=== PATIENT | male | born 1965 | race Caucasian/White ===

== ENCOUNTER 2019-04-02 21:25 | Emergency (ER) | payer MEDICAID ==
[~2019-04-02] VITALS: Ht 172.7 cm; Wt 91.0 kg
[2019-04-02] MEDS ORDERED: ONDANSETRON HCL 4MG/2ML INJ IV STA (23:05)
[2019-04-02 23:35] LABS: BASOPHILS % 0.5 % (0.0-2.0); CHLORIDE 109 mEq/L (98-107); EOSINOPHILS % 2.7 % (0.0-5.0); HEMATOCRIT. 45.4 % (42.0-52.0); HEMOGLOBIN. 15.3 g/dL (14.0-18.0); LYMPHOCYTES % 42.4 % (20.0-50.0); MEAN CORPUSCULAR HEMOGLOBIN 29.7 pg (28.0-32.0); MEAN CORPUSCULAR VOLUME 88.1 fL (80.0-94.0); MEAN PLATELET VOLUME 10.9 fl (7.4-10.4); MONOCYTES % 5.1 % (2.0-8.0); NEUTROPHILS % 49.3 % (40.0-76.0); PLATELET 160 x1000/uL (130-400); RED BLOOD CELL COUNT 5.15 mill/uL (4.7-6.1); RED CELL DISTRIBUTION WIDTH 14.1 % (11.6-14.6)
[2019-04-03 08:00] VITALS: BP 105/57
[2019-04-05] MEDS ORDERED: PANT40TA4 MT (10:10)
[2019-04-05] MEDS ORDERED: ATOR20TA65 MT (10:11)
== END 2019-04-03 08:30 | disposition home or self-care (01) ==
LOC: ER 21:25
DX: R11.10 Vomiting, unspecified (principal); R05 Cough; I10 Essential (primary) hypertension; F41.9 Anxiety disorder, unspecified; F03.90 Unspecified dementia, unspecified severity, without behavioral disturbance, psychotic disturbance, mood disturbance, and anxiety
CPT/HCPCS: 36415; 71045; 80053; 83690; 84484; 85025; 93005; 96374; 99284; J2405; Z7610

== ENCOUNTER 2020-01-08 22:41 | Inpatient (IN) | payer MEDICARE, MEDICAID ==
[~2020-01-08] VITALS: Ht 162.6 cm; Wt 74.4 kg
[2020-01-08 22:00] VITALS: BP 115/71
[~2020-01-08 22:41] MED LIST: ATOR20TA65 MT; PANT40TA4 MT
[2020-01-09] VITALS: BP 119/65
[2020-01-09 04:00] VITALS: BP 94/66
[2020-01-09] MEDS ORDERED: DEXTROSE 50% WATER 50ML SYRINGE IV PRN (04:30)
[2020-01-09] MEDS ORDERED: GABA-531 PO (05:00)
[2020-01-09] MEDS ORDERED: METF-416 MT (05:00)
[2020-01-09] MEDS ORDERED: FAMO20TA8 MT (05:00)
[2020-01-09] MEDS ORDERED: GLIP10TA10 PO (05:00)
[2020-01-09] MEDS: GABAPENTIN 100MG CAPSULE PO SCH ×3 (06:51→21:09)
[2020-01-09] MEDS: FAMOTIDINE 20MG TABLET PO SCH ×2 (06:53→16:56)
[2020-01-09] MEDS: BLOOD SUGAR DIAGNOSTIC STRIP TEST SCH ×4 (07:42→21:05)
[2020-01-09 08:00] VITALS: BP 101/68
[2020-01-09] MEDS: INSULIN LISPRO 100 UNITS/ML SUBCUT SCH ×4 (08:29→21:09)
[2020-01-09 09:13] LABS: CLARITY URINE CLOUDY (CLEAR); COLOR URINE YELLOW (YELLOW); KETONES URINE NEGATIVE (NEGATIVE); LEUKOCYTE ESTERASE URINE 3+ (NEGATIVE); NITRITE URINE NEGATIVE (NEGATIVE); OCCULT BLOOD URINE TRACE (NEGATIVE); PROTEIN URINE 1+ (NEGATIVE); SPECIFIC GRAVITY URINE 1.025 (1.005-1.030)
[2020-01-09 09:25] LABS: BASOPHILS % 0.6 % (0.0-2.0); EOSINOPHILS % 4.3 % (0.0-5.0); HEMATOCRIT. 48.1 % (42.0-52.0); HEMOGLOBIN. 16.1 g/dL (14.0-18.0); LYMPHOCYTES % 34.5 % (20.0-50.0); MEAN CORPUSCULAR HEMOGLOBIN 29.5 pg (28.0-32.0); MEAN CORPUSCULAR VOLUME 88.3 fL (80.0-94.0); MEAN PLATELET VOLUME 10.2 fl (7.4-10.4); MONOCYTES % 4.8 % (2.0-8.0); NEUTROPHILS % 55.8 % (40.0-76.0); PLATELET 188 x1000/uL (130-400); RED BLOOD CELL COUNT 5.45 mill/uL (4.7-6.1); RED CELL DISTRIBUTION WIDTH 14.9 % (11.6-14.6)
[2020-01-09 09:34] LABS: PROTHROMBIN TIME 10.9 sec (9.6-11.0)
[2020-01-09 09:40] LABS: CHLORIDE 107 mEq/L (98-107)
[2020-01-09] MEDS ORDERED: CEFTRIAXONE 1 G PREMIX 50 ML IV SCH (10:30)
[2020-01-09 12:00] VITALS: BP 112/72
[2020-01-09] MEDS: CEFTRIAXONE 1,000 MG in DEXTROSE 5% WATER 50 ML IV SCH (14:00)
[2020-01-09] MEDS: SODIUM CHLORIDE 0.9% 1,000 ML IV SCH (14:45)
[2020-01-09 16:00] VITALS: BP 117/69
[2020-01-09 20:00] VITALS: BP 129/79
[2020-01-09] MEDS: INSULIN GLARGINE UD 100 UNITS/ML SYR SUBCUT SCH (21:08)
[2020-01-10] VITALS: BP 113/72
[2020-01-10 04:00] VITALS: BP_SYST 108
[2020-01-10] MEDS: GABAPENTIN 100MG CAPSULE PO SCH ×3 (05:51→21:13)
[2020-01-10] MEDS: BLOOD SUGAR DIAGNOSTIC STRIP TEST SCH ×4 (06:40→21:13)
[2020-01-10] MEDS: FAMOTIDINE 20MG TABLET PO SCH ×2 (06:40→17:58)
[2020-01-10 08:00] VITALS: BP 110/66
[2020-01-10] MEDS: INSULIN LISPRO 100 UNITS/ML SUBCUT SCH ×4 (08:45→21:20)
[2020-01-10] MEDS: SODIUM CHLORIDE 0.9% 1,000 ML IV SCH (10:30)
[2020-01-10] MEDS: CEFTRIAXONE 1,000 MG in DEXTROSE 5% WATER 50 ML IV SCH (11:45)
[2020-01-10 12:00] VITALS: BP 94/46
[2020-01-10 15:15] LABS: BASOPHILS % 0.5 % (0.0-2.0); EOSINOPHILS % 4.2 % (0.0-5.0); HEMATOCRIT. 44.9 % (42.0-52.0); HEMOGLOBIN. 15.2 g/dL (14.0-18.0); LYMPHOCYTES % 38.5 % (20.0-50.0); MEAN CORPUSCULAR HEMOGLOBIN 29.9 pg (28.0-32.0); MEAN CORPUSCULAR VOLUME 88.3 fL (80.0-94.0); MONOCYTES % 4.6 % (2.0-8.0); NEUTROPHILS % 52.2 % (40.0-76.0); PLATELET 176 x1000/uL (130-400); RED BLOOD CELL COUNT 5.09 mill/uL (4.7-6.1); RED CELL DISTRIBUTION WIDTH 14.7 % (11.6-14.6)
[2020-01-10 15:20] LABS: CHLORIDE 105 mEq/L (98-107)
[2020-01-10 16:00] VITALS: BP 121/76
[2020-01-10 20:00] VITALS: BP 106/69
[2020-01-10] MEDS: INSULIN GLARGINE UD 100 UNITS/ML SYR SUBCUT SCH (21:21)
[2020-01-11] VITALS: BP 110/68
[2020-01-11 04:00] VITALS: BP 109/62
[2020-01-11] MEDS: GABAPENTIN 100MG CAPSULE PO SCH ×2 (05:17→13:01)
[2020-01-11] MEDS: FAMOTIDINE 20MG TABLET PO SCH ×2 (05:17→17:00)
[2020-01-11] MEDS: BLOOD SUGAR DIAGNOSTIC STRIP TEST SCH ×3 (06:13→17:00)
[2020-01-11 08:00] VITALS: BP 102/68
[2020-01-11] MEDS: INSULIN LISPRO 100 UNITS/ML SUBCUT SCH ×3 (08:35→17:55)
[2020-01-11 12:00] VITALS: BP 121/70
[2020-01-11] MEDS: CEFTRIAXONE 1,000 MG in DEXTROSE 5% WATER 50 ML IV SCH (12:19)
[2020-01-11 16:00] VITALS: BP 111/65
[2020-01-11] MEDS ORDERED: LEVO500T2 PO (18:43)
[2020-01-11 18:44] VITALS: BP 107/75
[2020-01-12] MEDS ORDERED: LEVOFLOXACIN 500MG TABLET PO SCH (11:00)
== END 2020-01-11 19:20 | DRG 871 ==
LOC: 6EST 22:41
PROVIDERS: ADMIT Internal Medicine; ATTEND Internal Medicine
DX: A41.9 Sepsis, unspecified organism (principal); G93.41 Metabolic encephalopathy; J98.11 Atelectasis; N39.0 Urinary tract infection, site not specified; K74.60 Unspecified cirrhosis of liver; B96.20 Unspecified Escherichia coli [E. coli] as the cause of diseases classified elsewhere; K21.9 Gastro-esophageal reflux disease without esophagitis; E11.40 Type 2 diabetes mellitus with diabetic neuropathy, unspecified; F03.90 Unspecified dementia, unspecified severity, without behavioral disturbance, psychotic disturbance, mood disturbance, and anxiety; Z86.73 Personal history of transient ischemic attack (TIA), and cerebral infarction without residual deficits
CPT/HCPCS: 36415; 71045; 80048; 80053; 81003; 82140; 82962; 83036; 84443; 85025; 87077; 87186; 93005; J0696; J1815; J7030; J7060

== ENCOUNTER 2020-05-17 09:36 | Inpatient (IN) | payer MEDICARE, MEDICAID ==
[~2020-05-17] VITALS: Ht 162.6 cm; Wt 72.1 kg
[~2020-05-17 09:36] MED LIST changes: +FAMO20TA8 MT; +GABA-531 PO; +GLIP10TA10 PO; +LEVO500T2 PO; +METF-416 MT
[2020-05-17] MEDS ORDERED: ACETAMINOPHEN 325MG TABLET PO STA (09:45)
[2020-05-17 13:30] LABS: BASOPHILS % 0.3 % (0.0-2.0); HEMATOCRIT. 47.2 % (42.0-52.0); HEMOGLOBIN. 15.9 g/dL (14.0-18.0); LYMPHOCYTES % 14.1 % (20.0-50.0); MEAN CORPUSCULAR HEMOGLOBIN 28.9 pg (28.0-32.0); MEAN CORPUSCULAR VOLUME 85.5 fL (80.0-94.0); MEAN PLATELET VOLUME 9.7 fl (7.4-10.4); MONOCYTES % 3.5 % (2.0-8.0); NEUTROPHILS % 82.1 % (40.0-76.0); PLATELET 141 x1000/uL (130-400); RED BLOOD CELL COUNT 5.52 mill/uL (4.7-6.1); RED CELL DISTRIBUTION WIDTH 14.7 % (11.6-14.6)
[2020-05-17 13:35] LABS: CHLORIDE 103 mEq/L (98-107)
[2020-05-17] MEDS ORDERED: ACETAMINOPHEN 325MG TABLET PO NR (14:22)
[2020-05-17] MEDS ORDERED: PIPERACILLIN/TAZ 3.375G PREMIX 50 ML IV NR (14:30)
[2020-05-17] MEDS ORDERED: SODIUM CHLORIDE 0.9% 250 ML IV ONE (14:30)
[2020-05-17] MEDS ORDERED: VANCOMYCIN 1 G PREMIX 200 ML IV NR (14:30)
[2020-05-17] MEDS ORDERED: DEXAMETHASONE 10 MG/ML VIAL IV NR (16:30)
[2020-05-17 17:44] LABS: CLARITY URINE CLOUDY (CLEAR); COLOR URINE YELLOW (YELLOW); KETONES URINE 3+ (NEGATIVE); LEUKOCYTE ESTERASE URINE NEGATIVE (NEGATIVE); NITRITE URINE NEGATIVE (NEGATIVE); OCCULT BLOOD URINE 2+ (NEGATIVE); PROTEIN URINE 4+ (NEGATIVE); SPECIFIC GRAVITY URINE 1.037 (1.005-1.030)
[2020-05-17] MEDS ORDERED: ALBUTEROL 6.7GM HFA INHALER ORI PRN (18:30)
[2020-05-17] MEDS ORDERED: GUAIFENESIN 200MG/10ML SUGAR FREE UDC PO PRN (18:30)
[2020-05-17] MEDS ORDERED: ZOLPIDEM TARTRATE 5MG TABLET PO PRN (18:30)
[2020-05-17] MEDS ORDERED: MAGNESIUM HYDROXIDE 400MG/5ML 30ML UDC PO PRN (18:30)
[2020-05-17] MEDS ORDERED: BENZONATATE 100MG CAPSULE PO PRN (18:30)
[2020-05-17] MEDS ORDERED: ACETAMINOPHEN 325MG TABLET PO PRN ×2 (18:30)
[2020-05-17] MEDS ORDERED: ONDANSETRON HCL 4MG/2ML INJ IV PRN (18:30)
[2020-05-17] MEDS ORDERED: MAGNESIUM/ALUMINUM HYDROXIDE/SIMETHICONE 30ML UDC PO PRN (18:30)
[2020-05-17] MEDS ORDERED: DIPHENHYDRAMINE 50MG/ML VIAL IV PRN (18:30)
[2020-05-17] MEDS ORDERED: CLONIDINE 0.1MG TABLET PO PRN (18:30)
[2020-05-17] MEDS: BLOOD SUGAR DIAGNOSTIC STRIP TEST SCH (19:08)
[2020-05-17] MEDS: INSULIN LISPRO 100 UNITS/ML SUBCUT SCH (19:10)
[2020-05-17] MEDS ORDERED: CEFEPIME 1,000 MG in DEXTROSE 5% WATER 50 ML IV SCH (20:00)
[2020-05-18] MEDS: SODIUM CHLORIDE 0.9% INJ 3ML FLUSH IVF SCH ×4 (00:44→21:35)
[2020-05-18] MEDS: GUAIFENESIN 600MG ER TABLET PO SCH ×3 (01:30→21:31)
[2020-05-18] MEDS: DOXYCYCLINE HYCLATE 100MG CAPSULE PO SCH ×3 (01:30→21:31)
[2020-05-18] MEDS: ENOXAPARIN 40MG/0.4ML SYR SUBCUT SCH ×2 (01:30→21:31)
[2020-05-18] MEDS: CHOLECALCIFEROL (D3) 1000 UNIT TABLET PO SCH ×2 (01:30→11:57)
[2020-05-18] MEDS: GABAPENTIN 100MG CAPSULE PO SCH ×4 (01:31→21:31)
[2020-05-18] MEDS: BLOOD SUGAR DIAGNOSTIC STRIP TEST SCH ×4 (01:31→21:00)
[2020-05-18] MEDS: INSULIN GLARGINE UD 100 UNITS/ML SYR SUBCUT SCH ×3 (01:32→22:33)
[2020-05-18] MEDS: INSULIN LISPRO 100 UNITS/ML SUBCUT SCH ×4 (01:33→22:33)
[2020-05-18] MEDS: FAMOTIDINE 20MG TABLET PO SCH ×3 (01:33→21:31)
[2020-05-18 05:12] LABS: BASOPHILS % 0.3 % (0.0-2.0); HEMATOCRIT. 48.2 % (42.0-52.0); HEMOGLOBIN. 16.1 g/dL (14.0-18.0); LYMPHOCYTES % 10.9 % (20.0-50.0); MEAN CORPUSCULAR VOLUME 86.7 fL (80.0-94.0); MEAN PLATELET VOLUME 9.7 fl (7.4-10.4); MONOCYTES % 2.6 % (2.0-8.0); NEUTROPHILS % 86.2 % (40.0-76.0); PLATELET 152 x1000/uL (130-400); RED BLOOD CELL COUNT 5.57 mill/uL (4.7-6.1); RED CELL DISTRIBUTION WIDTH 14.7 % (11.6-14.6)
[2020-05-18 05:14] LABS: CHLORIDE 104 mEq/L (98-107)
[2020-05-18 05:41] LABS: D-DIMER 0.76 mg/L FEU (<0.50); INR 1.1; PROTHROMBIN TIME 11.2 sec (9.6-11.0)
[2020-05-18] MEDS: METFORMIN HCL 500MG TABLET PO SCH ×2 (11:20→18:32)
[2020-05-18] MEDS: CEFEPIME 1,000 MG in DEXTROSE 5% WATER 50 ML IV SCH (11:57)
[2020-05-18 12:23] VITALS: BP 139/80
[2020-05-18 16:00] VITALS: BP 120/76
[2020-05-18 16:01] VITALS: BP 120/76
[2020-05-18] MEDS: DEXAMETHASONE 10 MG/ML VIAL IV SCH (18:41)
[2020-05-18 20:00] VITALS: BP 117/87
[2020-05-19] VITALS: BP 119/80
[2020-05-19] MEDS: CEFEPIME 1,000 MG in DEXTROSE 5% WATER 50 ML IV SCH ×2 (02:19→13:20)
[2020-05-19 04:00] VITALS: BP 135/68
[2020-05-19] MEDS: GABAPENTIN 100MG CAPSULE PO SCH ×3 (06:20→22:23)
[2020-05-19] MEDS: SODIUM CHLORIDE 0.9% INJ 3ML FLUSH IVF SCH ×3 (06:21→22:45)
[2020-05-19] MEDS: INSULIN LISPRO 100 UNITS/ML SUBCUT SCH ×4 (06:25→22:27)
[2020-05-19] MEDS: BLOOD SUGAR DIAGNOSTIC STRIP TEST SCH ×4 (06:26→21:00)
[2020-05-19 08:00] VITALS: BP 108/71
[2020-05-19] MEDS: GUAIFENESIN 600MG ER TABLET PO SCH ×2 (09:49→22:22)
[2020-05-19] MEDS: DOXYCYCLINE HYCLATE 100MG CAPSULE PO SCH ×2 (09:49→22:23)
[2020-05-19] MEDS: CHOLECALCIFEROL (D3) 1000 UNIT TABLET PO SCH (09:49)
[2020-05-19] MEDS: FAMOTIDINE 20MG TABLET PO SCH ×2 (09:49→22:23)
[2020-05-19] MEDS: METFORMIN HCL 500MG TABLET PO SCH ×2 (09:49→18:44)
[2020-05-19] MEDS: INSULIN GLARGINE UD 100 UNITS/ML SYR SUBCUT SCH (11:31)
[2020-05-19 12:00] VITALS: BP 111/75
[2020-05-19 16:00] VITALS: BP 106/67
[2020-05-19] MEDS: DEXAMETHASONE 10 MG/ML VIAL IV SCH (18:44)
[2020-05-19 20:00] VITALS: BP 104/68
[2020-05-19] MEDS: ENOXAPARIN 40MG/0.4ML SYR SUBCUT SCH (22:23)
[2020-05-20] VITALS: BP 101/70
[2020-05-20] MEDS: CEFEPIME 1,000 MG in DEXTROSE 5% WATER 50 ML IV SCH ×2 (00:18→12:12)
[2020-05-20 04:00] VITALS: BP 140/66
[2020-05-20] MEDS: SODIUM CHLORIDE 0.9% INJ 3ML FLUSH IVF SCH ×3 (05:53→23:25)
[2020-05-20] MEDS: GABAPENTIN 100MG CAPSULE PO SCH ×3 (05:53→23:26)
[2020-05-20] MEDS: INSULIN LISPRO 100 UNITS/ML SUBCUT SCH ×4 (06:38→21:00)
[2020-05-20] MEDS: BLOOD SUGAR DIAGNOSTIC STRIP TEST SCH ×4 (06:40→21:00)
[2020-05-20 08:00] VITALS: BP 121/74
[2020-05-20] MEDS: GUAIFENESIN 600MG ER TABLET PO SCH ×2 (09:00→23:26)
[2020-05-20] MEDS: CHOLECALCIFEROL (D3) 1000 UNIT TABLET PO SCH (10:03)
[2020-05-20] MEDS: DOXYCYCLINE HYCLATE 100MG CAPSULE PO SCH ×2 (10:03→23:25)
[2020-05-20] MEDS: METFORMIN HCL 500MG TABLET PO SCH ×2 (10:03→18:30)
[2020-05-20] MEDS: FAMOTIDINE 20MG TABLET PO SCH ×2 (10:03→23:24)
[2020-05-20] MEDS: INSULIN GLARGINE UD 100 UNITS/ML SYR SUBCUT SCH ×2 (10:16→23:34)
[2020-05-20 12:00] VITALS: BP 117/76
[2020-05-20 16:00] VITALS: BP 107/77
[2020-05-20] MEDS: DEXTROSE 50% WATER 50ML SYRINGE IV PRN (18:21)
[2020-05-20] MEDS: MEROPENEM 1,000 MG in SODIUM CHLORIDE 0.9% 100 ML IV SCH (18:30)
[2020-05-20] MEDS: ERGOCALCIFEROL 50000UNITS CAPSULE PO SCH (18:30)
[2020-05-20] MEDS: DEXAMETHASONE 10 MG/ML VIAL IV SCH (18:30)
[2020-05-20 20:00] VITALS: BP 112/65
[2020-05-20] MEDS: ENOXAPARIN 40MG/0.4ML SYR SUBCUT SCH (23:24)
[2020-05-21] VITALS: BP 108/71
[2020-05-21 04:00] VITALS: BP 98/63
[2020-05-21] MEDS: MEROPENEM 1,000 MG in SODIUM CHLORIDE 0.9% 100 ML IV SCH ×4 (04:47→17:25)
[2020-05-21] MEDS: BLOOD SUGAR DIAGNOSTIC STRIP TEST SCH ×4 (07:10→21:00)
[2020-05-21] MEDS: INSULIN LISPRO 100 UNITS/ML SUBCUT SCH ×4 (07:40→21:00)
[2020-05-21 07:53] LABS: BASOPHILS % 0.2 % (0.0-2.0); EOSINOPHILS % 0.1 % (0.0-5.0); HEMATOCRIT. 43.6 % (42.0-52.0); HEMOGLOBIN. 14.7 g/dL (14.0-18.0); LYMPHOCYTES % 19.3 % (20.0-50.0); MEAN PLATELET VOLUME 9.8 fl (7.4-10.4); MONOCYTES % 7.1 % (2.0-8.0); NEUTROPHILS % 73.3 % (40.0-76.0); PLATELET 241 x1000/uL (130-400); RED BLOOD CELL COUNT 5.07 mill/uL (4.7-6.1); RED CELL DISTRIBUTION WIDTH 14.6 % (11.6-14.6)
[2020-05-21 08:00] VITALS: BP 107/75
[2020-05-21 08:11] LABS: CHLORIDE 108 mEq/L (98-107)
[2020-05-21] MEDS: SODIUM CHLORIDE 0.9% INJ 3ML FLUSH IVF SCH ×3 (08:23→23:47)
[2020-05-21] MEDS: GABAPENTIN 100MG CAPSULE PO SCH ×3 (08:23→23:46)
[2020-05-21] MEDS: GUAIFENESIN 600MG ER TABLET PO SCH ×2 (09:00→23:46)
[2020-05-21] MEDS: INSULIN GLARGINE UD 100 UNITS/ML SYR SUBCUT SCH ×2 (10:00→22:00)
[2020-05-21] MEDS: DOXYCYCLINE HYCLATE 100MG CAPSULE PO SCH ×2 (10:02→23:46)
[2020-05-21] MEDS: FAMOTIDINE 20MG TABLET PO SCH ×2 (10:03→23:46)
[2020-05-21] MEDS: METFORMIN HCL 500MG TABLET PO SCH ×2 (10:03→17:40)
[2020-05-21 12:00] VITALS: BP 106/63
[2020-05-21 16:00] VITALS: BP 93/58
[2020-05-21] MEDS: DEXAMETHASONE 10 MG/ML VIAL IV SCH ×2 (17:00→17:26)
[2020-05-21 20:00] VITALS: BP 125/75
[2020-05-21] MEDS: ENOXAPARIN 40MG/0.4ML SYR SUBCUT SCH (23:46)
[2020-05-21] MEDS: DEXTROSE 50% WATER 50ML SYRINGE IV PRN (23:48)
[2020-05-22] VITALS: BP 129/69
[2020-05-22 04:00] VITALS: BP 113/73
[2020-05-22] MEDS: SODIUM CHLORIDE 0.9% INJ 3ML FLUSH IVF SCH ×3 (07:11→22:14)
[2020-05-22] MEDS: BLOOD SUGAR DIAGNOSTIC STRIP TEST SCH ×4 (07:11→21:00)
[2020-05-22] MEDS: INSULIN LISPRO 100 UNITS/ML SUBCUT SCH ×4 (07:11→21:00)
[2020-05-22] MEDS: GABAPENTIN 100MG CAPSULE PO SCH ×3 (07:11→22:14)
[2020-05-22 08:00] VITALS: BP 99/60
[2020-05-22] MEDS: MEROPENEM 1,000 MG in SODIUM CHLORIDE 0.9% 100 ML IV SCH ×2 (10:40→18:32)
[2020-05-22] MEDS: METFORMIN HCL 500MG TABLET PO SCH ×2 (10:41→17:40)
[2020-05-22] MEDS: FAMOTIDINE 20MG TABLET PO SCH ×2 (10:41→22:13)
[2020-05-22] MEDS: DOXYCYCLINE HYCLATE 100MG CAPSULE PO SCH ×2 (10:41→22:13)
[2020-05-22] MEDS: GUAIFENESIN 600MG ER TABLET PO SCH ×2 (10:41→22:13)
[2020-05-22] MEDS: INSULIN GLARGINE UD 100 UNITS/ML SYR SUBCUT SCH (10:42)
[2020-05-22] MEDS: DEXTROSE 50% WATER 50ML SYRINGE IV PRN ×2 (11:45→18:11)
[2020-05-22 12:00] VITALS: BP 111/74
[2020-05-22 16:18] LABS: BG BASE EXCESS -0.5 mmol/L (-2.0-2.0); BG CARBOXYHEMOGLOBIN 1.1 % (0.5-1.5); BG FRACTION INSPIRED OXYGEN 100; BG HCO3 ACT 22.9 mmol/L (22.0-26.0); BG METHEMOGLOBIN 0.7 % (0.0-1.5); BG OXYHEMOGLOBIN 97.2 % (94.0-97.0); BG PCO2 34.5 mmHg (35.0-45.0); BG PO2 142.7 mmHg (75.0-100.0); BG SAMPLE SITE RIGHT BRACHIAL; BG TOTAL HEMOGLOBIN 16.2 g/dL (12.0-18.0); BG VENT MODE MASK - NRB
[2020-05-22 16:20] VITALS: BP 115/73
[2020-05-22 20:00] VITALS: BP 109/68
[2020-05-22] MEDS: ENOXAPARIN 40MG/0.4ML SYR SUBCUT SCH (22:14)
[2020-05-23] VITALS: BP 112/82
[2020-05-23] MEDS: MEROPENEM 1,000 MG in SODIUM CHLORIDE 0.9% 100 ML IV SCH ×3 (01:18→23:31)
[2020-05-23 04:00] VITALS: BP 100/60
[2020-05-23] MEDS: SODIUM CHLORIDE 0.9% INJ 3ML FLUSH IVF SCH ×3 (05:54→23:31)
[2020-05-23] MEDS: GABAPENTIN 100MG CAPSULE PO SCH ×3 (05:54→23:31)
[2020-05-23] MEDS: BLOOD SUGAR DIAGNOSTIC STRIP TEST SCH ×4 (05:54→21:18)
[2020-05-23] MEDS: DEXTROSE 50% WATER 50ML SYRINGE IV PRN (06:03)
[2020-05-23] MEDS: INSULIN LISPRO 100 UNITS/ML SUBCUT SCH ×4 (07:40→21:00)
[2020-05-23] MEDS: METFORMIN HCL 500MG TABLET PO SCH ×2 (07:40→09:39)
[2020-05-23 08:00] VITALS: BP 109/73
[2020-05-23 08:38] LABS: BASOPHILS % 0.6 % (0.0-2.0); EOSINOPHILS % 1.4 % (0.0-5.0); HEMATOCRIT. 46.4 % (42.0-52.0); HEMOGLOBIN. 15.6 g/dL (14.0-18.0); LYMPHOCYTES % 15.4 % (20.0-50.0); MEAN CORPUSCULAR HEMOGLOBIN 29.5 pg (28.0-32.0); MEAN CORPUSCULAR VOLUME 87.3 fL (80.0-94.0); MEAN PLATELET VOLUME 9.8 fl (7.4-10.4); MONOCYTES % 4.5 % (2.0-8.0); NEUTROPHILS % 78.1 % (40.0-76.0); PLATELET 257 x1000/uL (130-400); RED BLOOD CELL COUNT 5.31 mill/uL (4.7-6.1); RED CELL DISTRIBUTION WIDTH 14.8 % (11.6-14.6)
[2020-05-23 08:49] LABS: CHLORIDE 111 mEq/L (98-107)
[2020-05-23] MEDS: DOXYCYCLINE HYCLATE 100MG CAPSULE PO SCH ×2 (09:38→21:19)
[2020-05-23] MEDS: GUAIFENESIN 600MG ER TABLET PO SCH ×2 (09:38→21:19)
[2020-05-23] MEDS: FAMOTIDINE 20MG TABLET PO SCH ×2 (09:38→21:19)
[2020-05-23 12:00] VITALS: BP 101/80
[2020-05-23 16:00] VITALS: BP 103/63
[2020-05-23] MEDS: DEXAMETHASONE 10 MG/ML VIAL IV SCH (19:46)
[2020-05-23 20:00] VITALS: BP 81/52
[2020-05-23] MEDS: ENOXAPARIN 40MG/0.4ML SYR SUBCUT SCH (21:19)
[2020-05-24] VITALS: BP 114/58
[2020-05-24 04:00] VITALS: BP 119/59
[2020-05-24] MEDS: MEROPENEM 1,000 MG in SODIUM CHLORIDE 0.9% 100 ML IV SCH ×3 (04:44→21:09)
[2020-05-24] MEDS: BLOOD SUGAR DIAGNOSTIC STRIP TEST SCH ×4 (06:18→21:09)
[2020-05-24] MEDS: GABAPENTIN 100MG CAPSULE PO SCH ×3 (06:19→21:08)
[2020-05-24] MEDS: SODIUM CHLORIDE 0.9% INJ 3ML FLUSH IVF SCH ×3 (06:19→21:09)
[2020-05-24] MEDS: INSULIN LISPRO 100 UNITS/ML SUBCUT SCH ×4 (07:40→21:00)
[2020-05-24 08:00] VITALS: BP 120/73
[2020-05-24] MEDS: METFORMIN HCL 500MG TABLET PO SCH (09:00)
[2020-05-24] MEDS: FAMOTIDINE 20MG TABLET PO SCH ×2 (09:00→21:08)
[2020-05-24] MEDS: DOXYCYCLINE HYCLATE 100MG CAPSULE PO SCH ×2 (11:04→21:08)
[2020-05-24] MEDS: GUAIFENESIN 600MG ER TABLET PO SCH ×2 (11:04→21:27)
[2020-05-24 12:00] VITALS: BP 121/75
[2020-05-24 16:00] VITALS: BP 105/66
[2020-05-24] MEDS: DEXAMETHASONE 10 MG/ML VIAL IV SCH (18:06)
[2020-05-24 20:00] VITALS: BP 100/66
[2020-05-24] MEDS: ENOXAPARIN 40MG/0.4ML SYR SUBCUT SCH (21:10)
[2020-05-25] VITALS: BP 108/70
[2020-05-25 04:00] VITALS: BP 122/80
[2020-05-25] MEDS: GABAPENTIN 100MG CAPSULE PO SCH ×3 (05:23→22:55)
[2020-05-25] MEDS: MEROPENEM 1,000 MG in SODIUM CHLORIDE 0.9% 100 ML IV SCH ×3 (05:23→22:55)
[2020-05-25] MEDS: SODIUM CHLORIDE 0.9% INJ 3ML FLUSH IVF SCH ×3 (05:24→22:56)
[2020-05-25] MEDS: BLOOD SUGAR DIAGNOSTIC STRIP TEST SCH ×4 (06:50→21:00)
[2020-05-25] MEDS: INSULIN LISPRO 100 UNITS/ML SUBCUT SCH ×4 (06:50→21:00)
[2020-05-25 08:00] VITALS: BP 106/63
[2020-05-25] MEDS: METFORMIN HCL 500MG TABLET PO SCH (08:30)
[2020-05-25] MEDS: GUAIFENESIN 600MG ER TABLET PO SCH ×2 (08:30→22:55)
[2020-05-25] MEDS: FAMOTIDINE 20MG TABLET PO SCH ×2 (08:30→22:55)
[2020-05-25 12:00] VITALS: BP 106/69
[2020-05-25 16:00] VITALS: BP 125/74
[2020-05-25] MEDS: DEXAMETHASONE 10 MG/ML VIAL IV SCH (17:28)
[2020-05-25 20:00] VITALS: BP 120/79
[2020-05-25] MEDS: ENOXAPARIN 40MG/0.4ML SYR SUBCUT SCH (22:56)
[2020-05-26] VITALS: BP 110/70
[2020-05-26 04:00] VITALS: BP 121/66
[2020-05-26] MEDS: GABAPENTIN 100MG CAPSULE PO SCH ×3 (06:14→22:14)
[2020-05-26] MEDS: BLOOD SUGAR DIAGNOSTIC STRIP TEST SCH ×4 (06:14→21:00)
[2020-05-26] MEDS: SODIUM CHLORIDE 0.9% INJ 3ML FLUSH IVF SCH ×3 (06:14→22:14)
[2020-05-26] MEDS: INSULIN LISPRO 100 UNITS/ML SUBCUT SCH ×4 (06:15→21:00)
[2020-05-26 08:00] VITALS: BP 134/73
[2020-05-26] MEDS: GUAIFENESIN 600MG ER TABLET PO SCH ×2 (11:06→22:12)
[2020-05-26] MEDS: METFORMIN HCL 500MG TABLET PO SCH (11:06)
[2020-05-26] MEDS: FAMOTIDINE 20MG TABLET PO SCH ×2 (11:06→22:12)
[2020-05-26 12:00] VITALS: BP 119/71
[2020-05-26 16:00] VITALS: BP 116/77
[2020-05-26 20:00] VITALS: BP 119/76
[2020-05-26] MEDS: ENOXAPARIN 40MG/0.4ML SYR SUBCUT SCH (22:14)
[2020-05-27] VITALS: BP 107/67
[2020-05-27 04:00] VITALS: BP 108/78
[2020-05-27] MEDS: SODIUM CHLORIDE 0.9% INJ 3ML FLUSH IVF SCH ×3 (05:49→23:33)
[2020-05-27] MEDS: GABAPENTIN 100MG CAPSULE PO SCH ×3 (05:49→23:33)
[2020-05-27] MEDS: BLOOD SUGAR DIAGNOSTIC STRIP TEST SCH ×4 (06:28→21:00)
[2020-05-27 08:00] VITALS: BP 109/70
[2020-05-27] MEDS: GUAIFENESIN 600MG ER TABLET PO SCH ×2 (10:58→23:32)
[2020-05-27] MEDS: METFORMIN HCL 500MG TABLET PO SCH (10:58)
[2020-05-27] MEDS: FAMOTIDINE 20MG TABLET PO SCH ×2 (10:58→23:33)
[2020-05-27] MEDS: INSULIN LISPRO 100 UNITS/ML SUBCUT SCH ×4 (11:00→23:36)
[2020-05-27 12:00] VITALS: BP 99/73
[2020-05-27 16:00] VITALS: BP 92/64
[2020-05-27] MEDS: ERGOCALCIFEROL 50000UNITS CAPSULE PO SCH (17:19)
[2020-05-27 20:00] VITALS: BP 101/70
[2020-05-27] MEDS: ENOXAPARIN 40MG/0.4ML SYR SUBCUT SCH ×2 (23:32→23:45)
[2020-05-27] MEDS: DEXAMETHASONE 10 MG/ML VIAL IV SCH ×2 (23:34→23:45)
[2020-05-28] VITALS (7 sets, daily range): BP systolic 92–125; BP diastolic 45–75
[2020-05-28] MEDS: SODIUM CHLORIDE 0.9% INJ 3ML FLUSH IVF SCH ×3 (06:00→22:10)
[2020-05-28] MEDS: BLOOD SUGAR DIAGNOSTIC STRIP TEST SCH ×4 (07:10→21:58)
[2020-05-28] MEDS: INSULIN LISPRO 100 UNITS/ML SUBCUT SCH ×4 (07:40→22:07)
[2020-05-28] MEDS: GUAIFENESIN 600MG ER TABLET PO SCH ×2 (09:37→21:58)
[2020-05-28] MEDS: FAMOTIDINE 20MG TABLET PO SCH ×2 (09:37→21:58)
[2020-05-28] MEDS: GABAPENTIN 100MG CAPSULE PO SCH ×3 (09:37→21:58)
[2020-05-28] MEDS: METFORMIN HCL 500MG TABLET PO SCH (09:38)
== END 2020-05-28 23:23 | DRG 871 ==
LOC: ER 10:11 → MICUSO 16:07 → EDBEDREQ 16:10 → 8WST 05-18 10:17
PROVIDERS: ADMIT Internal Medicine; ATTEND Internal Medicine
PROC: 5A09357 Assistance with Respiratory Ventilation, Less than 24 Consecutive Hours, Continuous Positive Airway Pressure (ICD-10-PCS; principal; 2020-05-25)
DX: A41.89 Other specified sepsis (principal); U07.1 COVID-19; J12.89 Other viral pneumonia; J96.01 Acute respiratory failure with hypoxia; E44.1 Mild protein-calorie malnutrition; N39.0 Urinary tract infection, site not specified; Z16.12 Extended spectrum beta lactamase (ESBL) resistance; D72.810 Lymphocytopenia; E11.9 Type 2 diabetes mellitus without complications; F03.90 Unspecified dementia, unspecified severity, without behavioral disturbance, psychotic disturbance, mood disturbance, and anxiety; D69.6 Thrombocytopenia, unspecified; K21.9 Gastro-esophageal reflux disease without esophagitis; K74.60 Unspecified cirrhosis of liver; B96.1 Klebsiella pneumoniae [K. pneumoniae] as the cause of diseases classified elsewhere; R65.20 Severe sepsis without septic shock; I10 Essential (primary) hypertension; Z20.828 Contact with and (suspected) exposure to other viral communicable diseases; F41.9 Anxiety disorder, unspecified; R13.10 Dysphagia, unspecified; Z86.73 Personal history of transient ischemic attack (TIA), and cerebral infarction without residual deficits; Z79.899 Other long term (current) drug therapy; Z79.4 Long term (current) use of insulin
CPT/HCPCS: 36415; 36600; 71045; 80048; 80053; 81003; 82375; 82728; 82805; 82962; 83036; 83605; 83880; 84145; 84484; 85025; 85379; 87077; 87186; 93005; 96365; 96375; 99291; A6261; C1893; J0692; J1100; J1650; J1815; J2185; J2543; J3370; J7040; J7050; J7060; U0003